=== PATIENT | female | born 1960 | race Caucasian/White ===

== ENCOUNTER 2017-11-12 06:58 | Emergency (ER) | payer BC ==
[~2017-11-12] VITALS: Ht 167.6 cm; Wt 54.0 kg
[2017-11-12 07:06] VITALS: BP 136/67; PULSE 56; RESP 16; O2SAT 100
[2017-11-12] MEDS ORDERED: SODIUM CHLOR 0.9% 1000 ML INJ 1,000 ML IV ONE (07:21)
[2017-11-12 07:25] VITALS: RESP 15; O2SAT 99
[2017-11-12] MEDS ORDERED: ONDANSETRON HCL 4 MG/2 ML VIAL IVP ONE (07:30)
[2017-11-12] MEDS ORDERED: MECLIZINE HCL 25 MG TAB PO ONE (07:30)
[2017-11-12] MEDS ORDERED: SODIUM CHLORIDE 0.9% FLUSH 10 ML FLUSH IVF PRN (07:30)
--- NOTE | 2017-11-12 07:31 | PD ---
HPI Chief Complaint: Dizziness Time Seen by Provider: 07:11 Travel History International Travel<30 days: No Contact w/Intl Traveler<30days: No Traveled to known affect area: No History of Present Illness HPI Patient is a 57 year old female who comes in complaining of dizziness. She says that it started last night, she tried to go to sleep hoping it would get better, but it hasn't. She says she feels lightheaded. She denies fever or chills. She denies decreased vision. She says she has had some diarrhea. She reports nausea, but no vomiting. She says that she had vertigo several years ago, but this feels different. She says she feels unsteady on her feet. She has not taken anything for her symptoms. Nothing seems to make her symptoms better or worse. Severity is moderate. PFSH Past Medical History Diminished Hearing: No Respiratory: Yes (sinus) Tetanus Vaccination: > 5 Years Influenza Vaccination: No : 3 Para: 3 Past Surgical History Abdominal Surgery: Yes Hysterectomy: Yes Social History Alcohol Use: No Tobacco Use: No Substance Use: No Allergies-Medications (Allergen,Severity, Reaction): Coded Allergies: amoxicillin (Verified Allergy, Severe, rash, 11/12/17) ciprofloxacin (Verified Allergy, Severe, rash, 11/12/17) Reported Meds & Prescriptions Reported Meds & Active Scripts Active No Active Prescriptions or Reported Medications Review of Systems Except as stated in HPI: all other systems reviewed are Neg General / Constitutional: No: Fever, Chills Eyes: No: Blurred Vision HENT: Positive: Lightheadedness, No: Headaches Cardiovascular: No: Chest Pain or Discomfort, Palpitations Respiratory: No: Shortness of Breath Gastrointestinal: Positive: Nausea, Diarrhea, Abdominal Pain, No: Vomiting Genitourinary: No: Dysuria Musculoskeletal: No: Myalgias, Edema Skin: No Rash, No Change in Pigmentation Neurologic: Positive: Dizziness, No: Weakness Physical Exam Narrative GENERAL: Awake and alert, no acute distress. SKIN: Focused skin assessment warm/dry. No wounds or signs of infection. HEAD: Atraumatic. Normocephalic. EYES: Pupils equal and round and reactive. No scleral icterus. Extraocular movements intact. Extinguishing horizontal nystagmus. ENT: Mucous membranes pink and moist. NECK: Trachea midline. No JVD. CARDIOVASCULAR: Regular rate and rhythm. No murmur appreciated. RESPIRATORY: No accessory muscle use. Clear to auscultation. Breath sounds equal bilaterally. GASTROINTESTINAL: Abdomen soft, non-tender, nondistended. MUSCULOSKELETAL: No obvious deformities. No clubbing. No cyanosis. No edema. NEUROLOGICAL: Awake and alert. No obvious cranial nerve deficits. Motor grossly within normal limits. Normal speech. Normal cerebellar function testing. PSYCHIATRIC: Appropriate mood and affect; insight and judgment normal. Data Data Last Documented VS Vital Signs Date Time Temp Pulse Resp B/P (MAP) Pulse Ox O2 Delivery O2 Flow Rate FiO2 11/12/17 08:41 97.8 54 16 118/63 (81) 99 Room Air Orders Orders Electrocardiogram (11/12/17 07:21) Complete Blood Count With Diff (11/12/17 07:21) Comprehensive Metabolic Panel (11/12/17 07:21) Troponin I (11/12/17 07:21) Act Partial Throm Time (Ptt) (11/12/17:21) Prothrombin Time / Inr (Pt) (11/12/17 07:21) Urinalysis - C+S If Indicated (11/12/17 07:21) Chest, Single Ap (11/12/17 07:21) Ct Brain W/O Iv Contrast(Rout) (11/12/17 07:21) Ecg Monitoring (11/12/17 07:21) Iv Access Insert/Monitor (11/12/17 07:21) Oximetry (11/12/17 07:21) Meclizine (Antivert) (11/12/17 07:30) Ondansetron Inj (Zofran Inj) (11/12/17 07:30) Sodium Chloride 0.9% Flush (Ns Flush) (11/12/17 07:30) Sodium Chlor 0.9% 1000 Ml Inj (Ns 1000 M (11/12/17 07:21) Metoclopramide (Reglan) (11/12/17 08:45) Diphenhydramine (Benadryl) (11/12/17 08:45) Labs Laboratory Tests Test 11/12/17 07:25 3 07:50 White Blood Count 4.0 TH/MM3 Red Blood Count 4.14 MIL/MM3 Hemoglobin 13.0 GM/DL Hematocrit 37.9 % Mean Corpuscular Volume 91.5 FL Mean Corpuscular Hemoglobin 31.3 PG Mean Corpuscular Hemoglobin Concent 34.2 % Red Cell Distribution Width 14.0 % Platelet Count 306 TH/MM3 Mean Platelet Volume 8.7 FL Neutrophils (%) (Auto) 65.8 % Lymphocytes (%) (Auto) 23.2 % Monocytes (%) (Auto) 8.8 % Eosinophils (%) (Auto) 1.7 % Basophils (%) (Auto) 0.5 % Neutrophils # (Auto) 2.6 TH/MM3 Lymphocytes # (Auto) 0.9 TH/MM3 Monocytes # (Auto) 0.4 TH/MM3 Eosinophils # (Auto) 0.1 TH/MM3 Basophils # (Auto) 0.0 TH/MM3 CBC Comment DIFF FINAL Differential Comment Prothrombin Time 10.1 SEC Prothromb Time International Ratio 1.0 RATIO Activated Partial Thromboplast Time 38.3 SEC Blood Urea Nitrogen 10 MG/DL Creatinine 0.92 MG/DL Random Glucose 97 MG/DL Total Protein 7.4 GM/DL Albumin 3.9 GM/DL Calcium Level 9.2 MG/DL Alkaline Phosphatase 81 U/L Aspartate Amino Transf (AST/SGOT) 16 U/L Alanine Aminotransferase (ALT/SGPT) 17 U/L Total Bilirubin 0.5 MG/DL Sodium Level 142 MEQ/L Potassium Level 5.0 MEQ/L Chloride Level 110 MEQ/L Carbon Dioxide Level 26.0 MEQ/L Anion Gap 6 MEQ/L Estimat Glomerular Filtration Rate 62 ML/MIN Troponin I LESS THAN 0.02 NG/ML Urine Color LIGHT-YELLOW Urine Turbidity CLEAR Urine pH 7.5 Urine Specific [place] 1.002 Urine Protein NEG mg/dL Urine Glucose (UA) NEG mg/dL Urine Ketones NEG mg/dL Urine Occult Blood NEG Urine Nitrite NEG Urine Bilirubin NEG Urine Urobilinogen LESS THAN 2.0 MG/DL Urine Leukocyte Esterase TRACE Urine RBC LESS THAN 1 /hpf Urine WBC 1 /hpf Urine Squamous Epithelial Cells <1 /hpf Urine Transitional Epithelial Cells <1 /hpf Microscopic Urinalysis Comment CULT NOT INDICATED MDM Medical Decision Making Medical Screen Exam Complete: Yes Emergency Medical Condition: Yes Medical Record Reviewed: Yes Interpretation(s) ECG shows sinus bradycardia at a rate of 50, no ST elevation or depression, normal intervals. Differential Diagnosis Dehydration vs electrolyte abnormalities vs migraine Narrative Course Patient is a 57 year old female who comes in complaining of dizziness. Exam shows no neurologic abnormalities. IV established, labs sent. Labs show no acute abnormalities. Given IVF, zofran, Meclizine. CT head shows no acute abnormalities. Last [address] 11/12/17720 Signed Impressions: Service Date/Time: Sunday, November 12, 2017 08:23 - CONCLUSION: No acute disease. Darius Fang MD Chest X-Ray 11/12/17720 Signed Impressions: Service Date/Time: Sunday, November 12, 2017 07:28 - CONCLUSION: 1. COPD. 2. No acute process. Schuyler Jansen MD Patient reports some improvement, but continued dizziness. Given Reglan and Benadryl. She reports feeling better. Offered admission for further testing, but she says she is feeling well enough to go home. Advised to follow up with he doctors. Advised to return at any time for any worsening symptoms. Diagnosis Primary Impression: Dizziness Patient Instructions: Dizziness (ED), General Instructions Additional Instructions: Drink plenty of fluids. Follow up with your doctor. Take Meclizine as needed for dizziness. Return at any time for any worsening symptoms. Scripts Meclizine (Meclizine) 25 Mg Tab 25 MG PO TID Y for VERTIGO for 7 Days, TAB 0 Refills Prov: Valerie Helms MD 11/12/17 Disposition: 01 DISCHARGE HOME Condition: Stable Valerie Helms MD Nov 12, 2017 07:31
[2017-11-12 07:43] LABS: AUTOMATED NEUTROPHIL # 2.6 TH/MM3 (1.8-7.7); BASOPHIL % 0.5 % (0.0-2.0); EOSINOPHIL # 0.1 TH/MM3 (0-0.4); EOSINOPHIL % 1.7 % (0.0-4.0); HEMATOCRIT 37.9 % (35.0-46.0); LYMPH % 23.2 % (9.0-44.0); LYMPHOCYTE # 0.9 TH/MM3 (1.0-4.8); MEAN CELL VOLUME 91.5 FL (80.0-100.0); MEAN CORPUSCULAR HEMOGLOBIN 31.3 PG (27.0-34.0); MEAN CORPUSCULAR HGB CONC 34.2 % (32.0-36.0); MEAN PLATELET VOLUME 8.7 FL (7.0-11.0); MONO % 8.8 % (0.0-8.0); MONOCYTE # 0.4 TH/MM3 (0-0.9); NEUT % 65.8 % (16.0-70.0); PLATELET COUNT 306 TH/MM3 (150-450); RED BLOOD COUNT 4.14 MIL/MM3 (4.00-5.30)
[2017-11-12 07:49] LABS: PROTHROMBIN TIME - PATIENT 10.1 SEC (9.8-11.6)
--- NOTE | 2017-11-12 07:51 | RADRPT ---
EXAM DATE/TIME: 11/12/2017 07:28 [facility] COMPARISON: No previous studies available for comparison. INDICATIONS : Dizziness. MEDICAL HISTORY : None. SURGICAL HISTORY : None. ENCOUNTER: Initial ACUITY: 1 day PAIN SCORE: 0/10 LOCATION: Bilateral chest FINDINGS: Lungs are hyperaerated. There are no acute infiltrates mass densities or effusions. Heart and mediastinal structures are unremarkable. Scoliotic deformity seen in the thoracic spine. CONCLUSION: 1. COPD. 2. No acute process. Schuyler Jansen MD on November 12, 2017 at 7:49 Board Certified Radiologist. This report was verified electronically.
[2017-11-12 08:08] LABS: ALBUMIN 3.9 GM/DL (3.4-5.0); ALT (GPT) 17 U/L (10-53); AST (GOT) 16 U/L (15-37); BLOOD UREA NITROGEN 10 MG/DL (7-18); CALCIUM 9.2 MG/DL (8.5-10.1); CHLORIDE 110 MEQ/L (98-107); CREATININE 0.92 MG/DL (0.50-1.00); GLOMERULAR FILTRATION RATE 62 ML/MIN (>89); GLUCOSE,RANDOM 97 MG/DL (74-106); SODIUM (NA) 142 MEQ/L (136-145)
[2017-11-12 08:11] LABS: ALKALINE PHOSPHATASE 81 U/L (45-117); TOTAL BILIRUBIN ADULT 0.5 MG/DL (0.2-1.0); TOTAL PROTEIN 7.4 GM/DL (6.4-8.2); TROPONIN I LESS THAN 0.02 NG/ML (0.02-0.05)
[2017-11-12 08:22] LABS: BILIRUBIN, URINE NEG (NEG); BLOOD, URINE NEG (NEG); GLUCOSE,URINE NEG (NEG); KETONE, URINE NEG (NEG); NITRITE,URINE NEG (NEG); PH, URINE 7.5 (5.0-8.5); SQUAMOUS EPITHELIAL CELL URINE <1 /hpf (0-5); TRANSITIONAL EPI CELLS, URINE <1 /hpf; URINE COLOR LIGHT-YELLOW (YELLW/STRAW); URINE LEUKOCYTE ESTERASE TRACE (NEG)
--- NOTE | 2017-11-12 08:34 | RADRPT ---
EXAM DATE/TIME: 11/12/2017 08:23 [facility] COMPARISON: No previous studies available for comparison. INDICATIONS : Dizziness since last night. RADIATION DOSE: 37.41 CTDIvol (mGy) MEDICAL HISTORY : None SURGICAL HISTORY : Hysterectomy. ENCOUNTER: Initial ACUITY: 1 day PAIN SCALE: 0/10 LOCATION: cranial TECHNIQUE: Multiple contiguous axial images were obtained of the head. Using automated exposure control and adj ustment of the mA and/or kV according to patient size, radiation dose was kept as low as reasonably a chievable to obtain optimal diagnostic quality images. DICOM format image data is available electro nically for review and comparison. FINDINGS: CEREBRUM: The ventricles are normal for age. No evidence of midline shift, mass lesion, hemorrhage or acute in farction. No extra-axial fluid collections are seen. POSTERIOR FOSSA: The cerebellum and brainstem are intact. The 4th ventricle is midline. The cerebellopontine angle i s unremarkable. EXTRACRANIAL: The visualized portion of the orbits is intact. SKULL: The calvaria is intact. No evidence of skull fracture. CONCLUSION: No acute disease. Darius Fang MD on November 12, 2017 at 8:31 Board Certified Radiologist. This report was verified electronically.
[2017-11-12 08:41] VITALS: BP 118/63; PULSE 54; RESP 16; TEMP 97.8; O2SAT 99
[2017-11-12] MEDS ORDERED: diphenhydrAMINE HCL 25 MG CAP PO ONE (08:45)
[2017-11-12] MEDS ORDERED: METOCLOPRAMIDE HCL 10 MG TAB PO ONE (08:45)
[2017-11-12] MEDS ORDERED: MECL-62 PO (10:09)
[2017-11-12 10:15] VITALS: BP 120/73; TEMP 97.7
--- NOTE | 2017-11-12 23:01 | EKG ---
Date Performed: 11/12/2017 Time Performed: 07:39:39 PTAGE: 57 years EKG: SINUS BRADYCARDIA BORDERLINE ECG NO PREVIOUS TRACING DOCTOR: Vinicio Lino Interpretating Date/Time 11/12/2017 23:00:30
== END 2017-11-12 10:15 | disposition home or self-care (01) ==
LOC: NEPC 06:58
DX: R42 Dizziness and giddiness (principal); J44.9 Chronic obstructive pulmonary disease, unspecified; R00.1 Bradycardia, unspecified; Z88.1 Allergy status to other antibiotic agents
CPT/HCPCS: 70450; 71045; 80053; 81001; 84484; 85025; 85610; 85730; 93005; 96361; 96374; 99285; J2405; J7030